=== PATIENT | male | born 1990 ===

== ENCOUNTER 2017-07-25 12:46 | Emergency (ER) | payer MEDICAID ==
[2017-07-25 13:03] VITALS: BP 132/70; PULSE 68; RESP 16; TEMP 97.9; O2SAT 98
--- NOTE | 2017-07-25 13:16 | ED PDOC ---
Lower Extremity Pain/Injury Time Seen by Provider: 07/25/17 13:00 Chief Complaint (Nursing): Lower Extremity Problem/Injury Chief Complaint (Provider): Left Foot Pain History Per: Patient History/Exam Limitations: no limitations Onset/Duration Of Symptoms: Days (x2) Current Symptoms Are (Timing): Still Present Additional Complaint(s): Otoniel Blevins is a 27 year old male that presents to the ED with a chief complaint of left foot pain that began two days ago. Patient reports that there was no injury prior to the onset of the pain, and that it began spontaneously in the toes of his left foot and has since spread throughout the top of his foot and towards his ankle. Patient states that his foot became swollen and red yesterday, but denies any scratch on his foot or and pain on the bottom of his foot. Of Note: Patient reports that he drinks alcohol daily, typically 6 beers/day or more. Patient also states that he eats pork. Past Medical History Reviewed: Historical Data, Nursing Documentation, Vital Signs Vital Signs: Last Vital Signs Temp 97.9 F 07/25/17 13:01 Pulse 68 07/25/17 13:01 Resp 16 07/25/17 13:01 BP 132/70 07/25/17 13:01 Pulse Ox 98 07/25/17 13:01 - Family History Family History: States: Unknown Family Hx - Social History Alcohol: > 2 Drinks/Day (Patient reports he drinks 6 beers/day or more.) - Home Medications Home Medications: Ambulatory Orders Medication Instructions Recorded Cephalexin [Keflex] 500 mg PO TID #21 capsule 07/25/17 Ketoconazole 2% Cr [Nizoral] 0.5 gm EXT BID #1 tube 07/25/17 Sulfamethoxazole/Trimethoprim 1 each PO BID #14 tablet 07/25/17 [Bactrim Ds Tablet] - Allergies Allergies/Adverse Reactions: Allergies Allergy/AdvReac Type Severity Reaction Status Date / Time No Known Allergies Allergy Verified 07/25/17 13:00 Review of Systems Musculoskeletal: Positive for: Foot Pain (left foot) Physical Exam - Reviewed Nursing Documentation Reviewed: Yes Vital Signs Reviewed: Yes - Physical Exam Appears: Positive for: Non-toxic, No Acute Distress Head Exam: Positive for: ATRAUMATIC, NORMOCEPHALIC Skin: Positive for: Normal Color, Warm Eye Exam: Positive for: Normal appearance, EOMI, PERRL Pulses-Dorsalis Pedis (L): 2+ Pulses-Dorsalis Pedis (R): 2+ Pulses-Post. Tibialis (L): 2+ Pulses-Post. Tibialis (R): 2+ Extremity: Positive for: Tenderness (TTP dorsum of left foot), Other (Erythema to dorsum of left foot). Negative for: Normal ROM (limited ROM left foot due to pain) Neurologic/Psych: Positive for: Alert, Oriented. Negative for: Motor/Sensory Deficits - Laboratory Results Result Diagrams: 07/25/17 13:53 - ECG O2 Sat by Pulse Oximetry: 98 - Progress ED Course And Treament: seen by podiatry resident Patient to start keflex/bactrim and f/u with podiatry next week. Medical Decision Making Medical Decision Making: Impression: Gout Plan: * X-Ray Left Foot * CBC * Uric Aid * Ibuprofen 600 mg PO 13:12 Consulted podiatry, will see the patient. Scribe Attestation: Documented by Reba Paulino, acting as a scribe for Reuben Summers PA-C. Provider Scribe Attestation: All medical record entries made by the Scribe were at my direction and personally dictated by me. I have reviewed the chart and agree that the record accurately reflects my personal performance of the history, physical exam, medical decision making, and the department course for this patient. I have also personally directed, reviewed, and agree with the discharge instructions and disposition. Disposition - Clinical Impression Clinical Impression: Cellulitis - Patient ED Disposition Is Patient to be Admitted: No - Disposition Referrals: Podiatry Clinic [Outside] Disposition: Routine/Home Disposition Time: 15:18 Condition: FAIR Prescriptions: Cephalexin [Keflex] 500 mg PO TID #21 capsule Ketoconazole 2% Cr [Nizoral] 0.5 gm EXT BID #1 tube Sulfamethoxazole/Trimethoprim [Bactrim Ds Tablet] 1 each PO BID #14 tablet Instructions: Cellulitis (ED) Forms: [facility] ([place]ian), [facility] ED School/Work Excuse
--- NOTE | 2017-07-25 13:56 | RAD ---
PROCEDURE: Left foot dated 07/25/20 17 HISTORY: Left foot pain. COMPARISON: No prior study available comparison FINDINGS: BONES: No evidence of acute displaced fracture nor dislocation. The osseous structures appear intact. JOINTS: Normal. SOFT TISSUES: Questionable mild diffuse circumferential soft tissue swelling at the level of the distal metatarsals. OTHER FINDINGS: None. IMPRESSION: No evidence of acute displaced fracture nor dislocation. . If symptoms persist or occult fracture suspected clinically recommend repeat radiographs in 5-10 days as most fractures should become radiographically evident in this timeframe. . Questionable mild diffuse circumferential soft tissue swelling at the level of the distal metatarsals. .
[2017-07-25 14:11] LABS: BASO % 0.3 % (0.0-2.0); EOS % 0.5 % (0.0-4.0); HEMATOCRIT 43.5 % (35.0-51.0); LYMPH # 1.2 K/uL (1.0-4.3); LYMPH % 13.3 % (20.0-40.0); MEAN CELL VOLUME 95.8 fl (80.0-94.0); MEAN CORPUSCULAR HEMOGLOBIN 31.7 pg (27.0-31.0); MEAN CORPUSCULAR HGB CONC 33.1 g/dL (33.0-37.0); MEAN PLATELET VOLUME 8.7 fl (7.2-11.7); MONO # 0.9 K/uL (0.0-0.8); MONO % 10.1 % (0.0-10.0); NEUT # 6.8 K/uL (1.8-7.0); NEUT % 75.8 % (50.0-75.0); WHITE BLOOD COUNT 8.9 K/uL (4.8-10.8)
--- NOTE | 2017-07-25 16:57 | CP.PCM.CON ---
History of Present Illness - History of Present Illness History of Present Illness: Podiatry Consult Note - Dr. Richardson 27 year old male unremarkable PMHx seen and evaluated in ED for left foot redness and swelling of 2 days duration. Patient hemodynamically stable and NAD. Patient does not know how it started; denies trauma, change in shoe gear, change in activity; patient unaware if he was bit by a bug. Patient states the redness began at the base of his toes and has since spread proximally over the top of his foot, and states yesterday the redness spread into his ankles. Patient states he is able to ambulate however with slight difficulty, reports 7/ 10 pain with ambulation and 10/10 pain with pressure. Denies N/V/F/D/C/SOB/calf pain. Offers no other pedal complaints at this time. PMHx: unremarkable PSHx: R ankle surgery FH: none SH: daily ETOH consumption ~6-10 drinks/day, regular tobacco use 1/2 pack to 1PPD, regular marijuana use, regular cocaine use All: NKDA Review of Systems - Review of Systems All systems: reviewed and no additional remarkable complaints except (as per HPI ) Past Patient History - Past Social History Alcohol: > 2 Drinks/Day (Patient reports he drinks 6 beers/day or more.) - PSYCHIATRIC Hx Substance Use: Yes - SURGICAL HISTORY Hx Surgeries: Yes Other/Comment: right ankle surgery 2012 - ANESTHESIA Hx Anesthesia: No Hx Anesthesia Reactions: No Meds Home Medications: Home Medication List Medication Instructions Recorded Confirmed Type Cephalexin [Keflex] 500 mg PO TID #21 capsule 07/25/17 Rx Ketoconazole 2% Cr [Nizoral] 0.5 gm EXT BID #1 tube 07/25/17 Rx Sulfamethoxazole/Trimethoprim 1 each PO BID #14 tablet 07/25/17 Rx [Bactrim Ds Tablet] Allergies/Adverse Reactions: Allergies Allergy/AdvReac Type Severity Reaction Status Date / Time No Known Allergies Allergy Verified 07/25/17 13:00 Physical Exam - Extremities Exam Additional comments: LLE focused physical exam: VASC: DP pulse palpable 2/4. PT pulse unable to be obtained due to guarding. Temperature warm to hot with increase in warmth to dorsum of forefoot, and medial/lateral ankle joint. Nonpitting edema noted to forefoot and medial ankle. NEURO: Gross sensation intact DERM: Erythema noted to bases of digits 2,3,4 extending proximally to metatarsal bases 2,3,4. Erythema noted distal to lateral malleolus. Erythema noted to medial malleolus extending distally. 0.1 x 0.1 cm blister noted to plantar aspect 3rd digit base. ORTHO: Pain on palpation forefoot, medial ankle, and lateral ankle on areas of erythema. - Neurological Exam Neurological exam: Alert, Oriented x3 - Psychiatric Exam Psychiatric exam: Normal Affect, Normal Mood Results - Vital Signs Recent Vital Signs: Last Vital Signs Temp 97.9 F 07/25/17 13:01 Pulse 68 07/25/17 13:01 Resp 16 07/25/17 13:01 BP 132/70 07/25/17 13:01 Pulse Ox 98 07/25/17 15:21 - Labs Result Diagrams: 07/25/17 13:53 Labs: Laboratory Results - last 24 hr 07/25/17 07/25/17 13:53 13:53 WBC 8.9 RBC 4.55 Hgb 14.4 Hct 43.5 MCV 95.8 H MCH 31.7 H MCHC 33.1 RDW 13.0 Plt Count 172 MPV 8.7 Neut % (Auto) 75.8 H Lymph % (Auto) 13.3 L [place] % (Auto) 10.1 H Eos % (Auto) 0.5 Baso % (Auto) 0.3 Neut # 6.8 Lymph # 1.2 [place] # 0.9 H Eos # 0.0 Baso # 0.0 Uric Acid 3.9 Assessment & Plan - Assessment and Plan (Free Text) Assessment: 27 year old male unremarkable PMHx with left foot and ankle cellulitis Plan: Patient seen and evaluated at bedside Discussed with attending, Dr. Richardson afebrile, WBC WNL 8.9, uric acid WNL 3.9 Left XR reviewed: negative for soft tissue emphysema. negative for bony involvement Recommend keflex 500mg PO TID 1 week Recommend Ketoconazole 2% cream BID Recommend extra strength Tylenol for pain Patient to follow up in the podiatry clinic 1 week Stable per podiatry standpoint Thank you for the consult, please reconsult as needed
== END 2017-07-25 15:39 | disposition home or self-care (01) ==
LOC: H.ER 12:46
DX: L03.116 Cellulitis of left lower limb (principal); Z87.891 Personal history of nicotine dependence